=== PATIENT | male | born 1985 ===

== ENCOUNTER 2021-10-03 12:08 | Emergency (ER) | payer SELFPAY ==
[~2021-10-03] VITALS: Ht 165.1 cm; Wt 63.6 kg
[2021-10-03 12:12] VITALS: BP 134/83
[2021-10-03 13:01] LABS: BASOPHILS % (AUTO) 0.4 % (0-1); EOSINOPHILS % (AUTO) 0.3 % (0-6); HEMATOCRIT 41.7 % (42.0-52.0); HEMOGLOBIN 14.1 g/dl (14.0-17.9); LYMPHOCYTES # (AUTO) 1.2 X10'3 (1.1-4.8); LYMPHOCYTES % (AUTO) 15.9 % (21-51); MEAN CORPUSCULAR HEMOGLOBIN 32.8 PG (27.0-31.0); MEAN CORPUSCULAR HGB CONC 33.9 g/dL (33.0-36.5); MEAN CORPUSCULAR VOLUME 96.8 FL (78-98); MEAN PLATELET VOLUME 7.8 FL (7.4-10.4); MONOCYTES # (AUTO) 0.7 X10'3 (0-0.9); MONOCYTES % (AUTO) 8.5 % (2-12); NEUTROPHILS # (AUTO) 5.8 X10'3 (1.8-7.7); NEUTROPHILS % (AUTO) 74.9 % (42-75); PLATELET COUNT 286 X10'3 (140-440); RED CELL DISTRIBUTION WIDTH 13.1 % (11.5-14.5); WHITE BLOOD COUNT 7.8 X10'3 (4.5-11.0)
[2021-10-03 13:22] LABS: ALANINE AMINOTRANSFERASE 22 U/L (12-78); ALBUMIN 3.9 G/DL (3.4-5.0); ALBUMIN/GLOBULIN RATIO 1.2 (1.1-1.5); ALKALINE PHOSPHATASE 49 IU/L (46-116); ANION GAP 8 (8-16); ASPARTATE AMINO TRANSFERASE 34 U/L (10-37); BILIRUBIN,TOTAL 0.6 MG/DL (0.1-1.0); BLOOD UREA NITROGEN 14 MG/DL (7-18); BUN/CREATININE RATIO 12.4 (5.4-32.0); CALCIUM 8.8 MG/DL (8.5-10.1); CHLORIDE 100 MMOL/L (99-107); CREATININE 1.13 MG/DL (0.60-1.10); ETHANOL < 0.010 GM/DL (0.0-0.010); GLUCOSE 106 MG/DL (70-104); POTASSIUM 4.6 MMOL/L (3.5-5.1); SODIUM 138 MMOL/L (135-145); TOTAL CARBON DIOXIDE 29.8 MMOL/L (24-32); TOTAL PROTEIN 7.2 G/DL (6.4-8.2); eGFR 74 ML/MIN
[2021-10-03] MEDS ORDERED: iohexol 350MG/ML 100ml bottle IV ONE (13:26)
[2021-10-03] MEDS ORDERED: haloperidol lactate 5mg/ml inj IM ONE (13:35)
--- NOTE | 2021-10-03 13:52 | NUR ---
hold the med rgt now as pt is cooperative and obeys orders.pt recived the iv without any difficulity ,informed the provider scheck the haoldol is held .
--- NOTE | 2021-10-03 13:53 | NUR ---
to ct scan.
--- NOTE | 2021-10-03 14:09 | NUR ---
taken iv out as per provider philip order and order to give im haldol as pt started pacing .will follow the orders.
--- NOTE | 2021-10-03 14:10 | NUR ---
admin the halodol inj to the patient as per md orders as pt started pacing in th eroom ,security at bedside for standy,pt recived the med without any trouble .
--- NOTE | 2021-10-03 14:15 | NUR ---
notified charge nurse galen and provider philip that as pt recived the halodol inj after few mins pt escaped ,pt was chased by security but pt lft the premises.as per galen mueller she will call the rpd.
--- NOTE | 2021-10-03 14:16 | NUR ---
Called [facility], reported pt had eloped from dept. States they will send an officer to check the area.
[2021-10-03 14:35] LABS: URINE AMPHETAMINE SCREEN POSITIVE (Neg); URINE BARBITUATE SCREEN NEGATIVE (Neg); URINE BENZODIAZEPINES SCREEN NEGATIVE (Neg); URINE CANNABINOID SCREEN NEGATIVE (Neg); URINE COCAINE SCREEN NEGATIVE (Neg); URINE METHADONE SCREEN NEGATIVE (Neg); URINE OPIATE SCREEN NEGATIVE (Neg); URINE PHENCYCLIDINE SCREEN NEGATIVE (Neg)
== END 2021-10-03 14:20 | disposition left against medical advice (07) ==
LOC: ER 12:09
DX: R45.851 Suicidal ideations (principal); Z56.0 Unemployment, unspecified
CPT/HCPCS: 36415; 70498; 80053; 80305; 80320; 85025; 96372; 99285; J1630; Q9967